=== PATIENT | female | born 1960 | race Caucasian/White ===

== ENCOUNTER 2018-05-30 11:04 | Outpatient (CLI) | payer OTHER ==
--- NOTE | 2018-05-30 12:14 | RAD ---
PA AND LATERAL VIEWS OF THE CHEST: History: Shortness of breath, acute asthmatic bronchitis. FINDINGS: The heart size is normal. The lungs are expanded without focal areas of consolidation, pneumothoraces or pleural effusions. Biapical scarring is present. No acute osseous abnormalities are seen. IMPRESSION: No radiographic evidence of acute cardiopulmonary process. POS: C
== END 2018-05-30 11:05 | disposition home or self-care (01) ==
LOC: NAV RAD 11:04
PROVIDERS: ATTEND Internal Medicine
DX: J45.909 Unspecified asthma, uncomplicated (principal)
CPT/HCPCS: 71046

== ENCOUNTER 2021-11-26 10:20 | Outpatient (CLI) | payer OTHER | END 2021-11-26 10:21 | disposition home or self-care (01) | LOC: NAV RAD 10:20 | PROVIDERS: ATTEND Family Medicine | DX: R05.3 Chronic cough (principal) | CPT/HCPCS: 71046 ==